=== PATIENT | male | born 1945 | race Caucasian/White ===

== ENCOUNTER 2017-09-28 05:50 | Day surgery (SDC) | payer OTHER | END 2017-09-28 10:50 | disposition home or self-care (01) | LOC: AMB-ENDOS 05:50 | DX: D12.2 Benign neoplasm of ascending colon (principal); D12.4 Benign neoplasm of descending colon; D12.5 Benign neoplasm of sigmoid colon; K57.30 Diverticulosis of large intestine without perforation or abscess without bleeding; K64.8 Other hemorrhoids ==

== ENCOUNTER 2020-04-08 08:45 | Outpatient (CLI) | payer OTHER | END 2020-04-08 09:27 | disposition home or self-care (01) | LOC: OFIC 805 08:45 | PROVIDERS: ATTEND Otolaryngology | DX: J32.8 Other chronic sinusitis (principal); H90.3 Sensorineural hearing loss, bilateral ==

== ENCOUNTER 2020-07-14 15:03 | Outpatient (CLI) | payer OTHER | END 2020-07-14 15:23 | disposition home or self-care (01) | LOC: OFIC 805 15:03 | PROVIDERS: ATTEND Otolaryngology | DX: J30.89 Other allergic rhinitis (principal); J32.0 Chronic maxillary sinusitis ==